=== PATIENT | female | born 1945 | race Caucasian/White ===

== ENCOUNTER 2021-04-20 13:20 | Emergency (ER) | payer MEDICARE, OTHER ==
[~2021-04-20] VITALS: Ht 165.1 cm; Wt 86.3 kg
[2021-04-20] MEDS ORDERED: LIPITOR10 MG PO (13:36)
[2021-04-20] MEDS ORDERED: DRIZALMA SPRINK60 MG PO (13:37)
[2021-04-20] MEDS ORDERED: CALCIUM MAGNES1 EAC2 PO (13:37)
[2021-04-20] MEDS ORDERED: BUMETANIDE 1 MG1 M1 PO (13:37)
[2021-04-20] MEDS ORDERED: LEXAPRO 10 MG T10 M1 PO (13:38)
[2021-04-20] MEDS ORDERED: FISH OIL 1,0001 EAC9 PO (13:42)
[2021-04-20] MEDS ORDERED: FOLIC ACID1 MG PO (13:42)
[2021-04-20] MEDS ORDERED: KEPPRA XR500 MG PO (13:42)
[2021-04-20] MEDS ORDERED: FUROSEMIDE 20 M20 M1 PO (13:42)
[2021-04-20] MEDS ORDERED: MELATONIN3 M1 PO (13:43)
[2021-04-20] MEDS ORDERED: METHOTREXATE 22.5 M1 PO (13:43)
[2021-04-20] MEDS ORDERED: PROTONIX40 M2 PO (13:43)
[2021-04-20] MEDS ORDERED: OMEPRAZOLE 20 M20 M1 PO (13:43)
[2021-04-20] MEDS ORDERED: PEG 3350 (13:44)
[2021-04-20] MEDS ORDERED: MIRAPEX1 MG PO (13:45)
[2021-04-20] MEDS ORDERED: POTASSIUM CHLO10 MEQ PO (13:45)
[2021-04-20] MEDS ORDERED: TRAZODONE HCL50 MG PO (13:46)
[2021-04-20] MEDS ORDERED: TROKENDI XR25 MG PO (13:46)
[2021-04-20] MEDS ORDERED: TYLENOL325 M1 PO (13:46)
[2021-04-20] MEDS ORDERED: STOOL SOFTENER100 MG PO (13:47)
[2021-04-20] MEDS ORDERED: PERCOCET 7.5-31 EAC1 PO (13:47)
[2021-04-20] MEDS ORDERED: TIZANIDINE HCL2 M1 PO (13:48)
[2021-04-20] MEDS ORDERED: CEPHALEXIN500 MG PO (16:34)
[2021-04-20] MEDS ORDERED: HYDROCODON-ACE1 EAC7 PO (16:34)
[2021-04-20 17:48] VITALS: BP 110/88
== END 2021-04-20 17:48 | disposition home or self-care (01) ==
LOC: M.ERS 13:20
DX: S61.307A Unspecified open wound of left little finger with damage to nail, initial encounter (principal); S20.212A Contusion of left front wall of thorax, initial encounter; W18.39XA Other fall on same level, initial encounter; Y93.89 Activity, other specified; Y92.89 Other specified places as the place of occurrence of the external cause; Y99.8 Other external cause status